=== PATIENT | male | born 1965 | race Two or more races ===

== ENCOUNTER 2022-10-09 13:08 | Outpatient (CLI) | payer OTHER | END 2022-10-09 13:10 | disposition home or self-care (01) | LOC: NUCLEAR 13:08 | PROVIDERS: ATTEND Urology | DX: C64.1 Malignant neoplasm of right kidney, except renal pelvis (principal) ==

== ENCOUNTER 2023-01-03 07:58 | Inpatient (IN) | payer OTHER ==
[~2023-01-03] VITALS: Ht 170.2 cm; Wt 52.2 kg
[2023-01-06 10:01] LABS: PH,URINE 5.5 (5.0-8.0); URINE APPEARANCE Clear; URINE BILIRRUBIN Negative (NEGATIVE); URINE BLOOD Negative; URINE COLOR Yellow; URINE GLUCOSE Negative (NEGATIVE); URINE LEUKOCYTE Negative; URINE NITRATE Negative; URINE PROTEIN Negative (NEGATIVE); URINE UROBILINOGEN 0.2 E.U./dl
[2023-01-06 10:03] LABS: URINE WBC 2.1 uL (0.0-23.2)
[2023-01-06 10:08] LABS: HEMATOCRIT 43.6 % (39.0-48.0); HEMOGLOBIN 14.1 g/dL (13-16.00); MEAN CELL VOLUME 88.1 fL (80.0-100.00); MEAN CORPUSCULAR HEMOGLOBIN 28.5 pg (27.00-32.0); MEAN CORPUSCULAR HGB CONC 32.3 g/dl (32.0-36.0); PLATELET COUNT 252 K/uL (150-450); RED BLOOD COUNT 4.95 M/uL (4.00-6.00); RED CELL DISTRIBUTION WIDTH 14.7 % (11.5-14.5)
[2023-01-06 10:13] LABS: INR 0.97; PARTIAL THROMBOPLASTIN TIME 28.2 SECONDS (22.0-34.0); PROTHROMBIN TIME 10.2 SECONDS (9.0-11.5)
[2023-01-06 10:35] LABS: CALCIUM 8.9 mg/dL (8.5-10.1); CREATININE SERUM 0.94 mg/dL (0.70-1.30); GFR 82.72; POTASSIUM 4.22 mEq/L (3.5-5.1)
[2023-01-06 10:38] LABS: URINE BACTERIA 0 uL (0.0-1933); URINE EPITHELIAL CELLS 0.1 uL (0.0-38.8); URINE RBC 0.5 uL (0.0-20.8)
[2023-01-11 08:23] LABS: HEMATOCRIT 37.5 % (39.0-48.0); HEMOGLOBIN 12.6 g/dL (13-16.00); MEAN CELL VOLUME 87.3 fL (80.0-100.00); MEAN CORPUSCULAR HEMOGLOBIN 29.2 pg (27.00-32.0); MEAN CORPUSCULAR HGB CONC 33.5 g/dl (32.0-36.0); PLATELET COUNT 189 K/uL (150-450); RED CELL DISTRIBUTION WIDTH 14.6 % (11.5-14.5)
[2023-01-11 09:19] LABS: CREATININE SERUM 1.38 mg/dL (0.70-1.30); GFR 53.11; POTASSIUM 4.37 mEq/L (3.5-5.1)
[2023-01-12 08:24] LABS: CALCIUM 7.8 mg/dL (8.5-10.1); CREATININE SERUM 1.54 mg/dL (0.70-1.30); GFR 46.79; POTASSIUM 3.96 mEq/L (3.5-5.1)
[2023-01-12 09:05] LABS: HEMATOCRIT 36.9 % (39.0-48.0); MEAN CELL VOLUME 88.7 fL (80.0-100.00); MEAN CORPUSCULAR HEMOGLOBIN 28.9 pg (27.00-32.0); MEAN CORPUSCULAR HGB CONC 32.5 g/dl (32.0-36.0); PLATELET COUNT 197 K/uL (150-450); RED BLOOD COUNT 4.15 M/uL (4.00-6.00); RED CELL DISTRIBUTION WIDTH 14.6 % (11.5-14.5)
== END 2023-01-12 14:14 | disposition home or self-care (01) | DRG 658 ==
LOC: O/R 01-10 05:15 → SURG 01-10 07:30 → SURH 01-10 11:51
PROVIDERS: ADMIT Urology; ATTEND Urology
PROC: 0TT04ZZ Resection of Right Kidney, Percutaneous Endoscopic Approach (ICD-10-PCS; principal; 2023-01-10 11:00)
DX: C64.1 Malignant neoplasm of right kidney, except renal pelvis (principal); M62.830 Muscle spasm of back; G47.33 Obstructive sleep apnea (adult) (pediatric)